=== PATIENT | male | born 1950 | race Caucasian/White ===

== ENCOUNTER 2024-10-12 09:41 | Outpatient (CLI) | payer OTHER, SELFPAY ==
--- OUTSIDE RECORDS SUMMARY | 2024-10-12 10:19 | XMS_ITS ---
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 Controlled. Continue beta-denis, amlodipine benazepril, aspirin Assessment & Plan (04/08/2023 4:55 PM SLOT HOST): Chronic. HTN controlled. Cont prescription Rx. Low sodium diet (DASH or Mediterranean), exercise, wt loss (if over weight) discussed Pure hypercholesterolemia 04/08/2023 Assessment & Plan (10/07/2023 7:19 PM CDT): Chronic. Tolerates rosuvastatin. LDL goal of less than 70. Borderline control on last check. Continue cholesterol medication. Work on diet and lifestyle Assessment & Plan (04/08/2023 4:56 PM SLOT HOST): Chronic. Tolerates rosuvastatin 40 mg daily. LDL just above goal. Discussed option to add Zetia or continue with current medication and work on diet and exercise. Patient is to continue rosuvastatin 40 mg daily and will continue to work on healthy diet, exercise and weight loss. We will plan to recheck cholesterol level in about 6 months to see if LDL is improving CAD (coronary artery disease) 04/08/2023 Assessment & Plan (10/07/2023 7:19 PM CDT): Chronic. Denies chest pain. Continue risk factor modification with high intensity cholesterol medication aspirin, blood pressure control Assessment & Plan (04/08/2023 4:56 PM SLOT HOST): Chronic. Denies chest pain. Continue risk factor modification with ASA and high-intensity statin Prostate cancer 04/08/2023 Cancer Staging:Clinical stage from 05/05/2024:Stage IIB(cT1c, cN0, cM0, PSA: 8.6, Grade Group: 2) - Signed by Errol Gr MD on 07/05/2024 Assessment & Plan (10/07/2023 7:20 PM CDT): Chronic. Has elevated PSA. He is getting routine monitoring per Urology. He has had prior prostate biopsies. They are trending his PSA may do repeat biopsies pending results. He had a PSA drawn today. He has a history of mild BPH symptoms which are controlled with the tamsulosin Assessment & Plan (04/08/2023 4:56 PM SLOT HOST): Recent diagnosis earlier this year. Sees urology. Currently they are planning Q six-month PSA monitoring before considering if positive initial treatment would be necessary Elevated PSA 04/02/2022 Current Treatment and Therapy Plans No current plan information found. Past Treatment and Therapy Plans No past plan information found. Radiation Treatments * Course [id number]/[id number] - 08/10/2024 Treatment Period Energy Fraction Dose Fractions Total Dose Plans Planned SBRT PROSTATE 08/01/2024 - 08/10/2024 725 5 / 3,625 Reference Points Delivered PROST [id number] 08/01/2024 - 08/10/2024 3,625
--- OUTSIDE RECORDS SUMMARY | 2024-10-12 10:19 | XMS_ITS | Clinical Summary ---
Author Organization [facility] Address [address] [address] Phone Care Team Providers Care Scheduler Name Role Phone Deborah Restrepo MD Unavailable Trish Ma MD Primary Care Provider Allergies Active Allergy Reactions Criticality Noted Date Comments Ciprofloxacin Hives,Itching,Other (See comments) Medium 04/02/2022 BP drops Medications tiZANidine (ZANAFLEX) 2 mg tabletIndications:Acute bilateral low back pain without sciatica Take 1 tablet (2 mg total) by mouth every 8 (eight) hours as needed for muscle spasms 270 tablet 1 10/21/19 24 Active tamsulosin (FLOMAX) 0.4 mg extended release capsule Take 1 capsule (0.4 mg total) by mouth daily 90 capsule 3 03/09/20 24 025 Active amLODIPine-benazepriL (LOTREL) 5-40 mg per capsuleIndications:Coron mindy artery disease involving salt river coronary artery of salt river heart without angina pectoris,Essential hypertension TAKE 1 CAPSULE BY MOUTH EVERY DAY AT NIGHT 90 capsule 1 03/21/20 24 Active aspirin 81 mg chewable tabletIndications:Ramesh ry artery disease involving salt river coronary artery of salt river heart without angina pectoris TAKE 1 TABLET BY MOUTH EVERY DAY 90 tablet 3 03/21/20 24 Active rosuvastatin (CRESTOR) 40 mg tabletIndications:Ramesh ry artery disease involving salt river coronary artery of salt river heart without angina pectoris,Pure hypercholesterolemia TAKE 1 TABLET BY MOUTH EVERYDAY AT BEDTIME 90 tablet 3 03/21/20 24 Active ezetimibe (ZETIA) 10 mg tabletIndications:Ramesh ry artery disease involving salt river coronary artery of salt river heart without angina pectoris,Pure hypercholesterolemia Take 1 tablet (10 mg total) by mouth daily 90 tablet 1 04/05/20 24 Active metoprolol XL (TOPROL-XL) 25 mg extended release tabletIndications:Ramesh ry artery disease involving salt river coronary artery of salt river heart without angina pectoris,Essential hypertension TAKE 0.5 TABLETS BY MOUTH NIGHTLY. 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 Controlled. Continue beta-denis, amlodipine benazepril, aspirin Assessment & Plan (04/08/2023 4:55 PM BIBLIOGRAPHIC SERVICES SPECIALIST): Chronic. HTN controlled. Cont prescription Rx. Low sodium diet (DASH or Mediterranean), exercise, wt loss (if over weight) discussed Pure hypercholesterolemia 04/08/2023 Assessment & Plan (10/07/2023 7:19 PM CDT): Chronic. Tolerates rosuvastatin. LDL goal of less than 70. Borderline control on last check. Continue cholesterol medication. Work on diet and lifestyle Assessment & Plan (04/08/2023 4:56 PM BIBLIOGRAPHIC SERVICES SPECIALIST): Chronic. Tolerates rosuvastatin 40 mg daily. LDL [...] control Assessment & Plan (04/08/2023 4:56 PM BIBLIOGRAPHIC SERVICES SPECIALIST): Chronic. Denies chest pain. Continue risk factor [...] tamsulosin Assessment & Plan (04/08/2023 4:56 PM BIBLIOGRAPHIC SERVICES SPECIALIST): Recent diagnosis earlier this year. Sees urology. Currently they are planning Q six-month PSA monitoring before considering if positive initial treatment would be necessary Elevated PSA 04/02/2022 Encounters Date Type Department Care Team Description 09/27/2024 9:45 AM CDT Lab [facility] Outpatient Lab at [address] [phone] 09/27/2024 9:38 AM CDT - 09/27/2024 11:59 PM CDT Hospital Encounter [address] [address] Prostate cancer (HCC) Discharge Disposition: Discharge to home or self care 09/27/2024 Telephone [facility] Cardiology [address] [place] [phone] Gail Jara MD 09/23/2024 Telephone [facility] Cardiology [address] [place] [phone] Gail Jara MD 09/23/2024 Results Follow-Up [facility] Cardiology [address] [place] [address] [place] [phone] Gail Jara MD Transthoracic Echo (TTE) Complete W Doppler/CF 09/20/2024 3:00 PM CDT Ancillary Procedure [facility] Cardiology [address] [place] [address] Coronary artery disease involving salt river coronary artery of salt river heart without angina pectoris; Pure hypercholesterolemia; Essential hypertension; Hx of CABG 08/22/2024 9:15 AM CDT Office Visit [facility] Cardiology [address] [place] [phone] Gail Jara MD Hx of CABG (Primary Dx); Atherosclerosis of salt river coronary artery without angina pectoris, unspecified whether salt river or transplanted heart; Coronary artery disease involving salt river coronary artery of salt river heart without angina pectoris; Pure hypercholesterolemia; Essential hypertension 08/10/2024 10:42 AM CDT - 08/10/2024 11:59 PM CDT Hospital Encounter [facility] Radiation Oncology [address] [place] [address] Isaac Johnson MD Discharge Disposition: Discharge to home or self care 08/10/2024 Completion of Therapy [facility] Radiation Oncology [address] [place] [address] Isaac Johnson MD 08/10/2024 Orders Only RAD ONC TREATMENTS Miscellaneous, Not In File 08/10/2024 Orders Only RAD ONC TREATMENTS Miscellaneous, Not In File 08/08/2024 11:42 AM CDT - 08/08/2024 11:59 PM CDT Hospital Encounter [facility] Radiation Oncology [address] [place] [address] Isaac Johnson MD Discharge Disposition: Discharge to home or self care 08/08/2024 Orders Only RAD ONC TREATMENTS Miscellaneous, Not In File 08/08/2024 Orders Only [facility] Radiation Oncology [address] [place] [id number] Isaac Johnson MD Prostate cancer (HCC) (Primary Dx) 08/05/2024 12:38 PM CDT - 08/05/2024 11:59 PM CDT Hospital Encounter [facility] Radiation Oncology [address] [facility] [place] [address] Isaac Johnson MD Discharge Disposition: Discharge to home or self care 08/05/2024 Orders Only RAD ONC TREATMENTS Miscellaneous, Not In File 08/03/2024 1:18 PM CDT - 08/03/2024 11:59 PM CDT Hospital Encounter [facility] Radiation Oncology [address] [place] [address] Isaac Johnson MD Discharge Disposition: Discharge to home or self care 08/03/2024 OTV [facility] Radiation Oncology [address] [place] [address] Isaac Johnson MD 08/03/2024 Orders Only RAD ONC TREATMENTS Miscellaneous, Not In File 08/01/2024 10:37 AM CDT - 08/01/2024 11:59 PM CDT Hospital Encounter [facility] Radiation Oncology [address] [place] [address] Isaac Johnson MD Discharge Disposition: Discharge to home or self care 08/01/2024 Orders Only RAD ONC TREATMENTS Miscellaneous, Not In File 07/28/2024 6:10 PM BIBLIOGRAPHIC SERVICES SPECIALIST - 07/28/2024 11:59 PM BIBLIOGRAPHIC SERVICES SPECIALIST Hospital Encounter [facility] Radiation Oncology [address] [place] [address] Isaac Johnson MD Discharge Disposition: Discharge to home or self care 07/21/2024 2:00 PM BIBLIOGRAPHIC SERVICES SPECIALIST - 07/21/2024 11:59 PM BIBLIOGRAPHIC SERVICES SPECIALIST Hospital Encounter [facility] Radiation Oncology [address] [place] [address] [place] [address] Isaac Johnson MD Discharge Disposition: Discharge to home or self care 07/21/2024 12:49 PM BIBLIOGRAPHIC SERVICES SPECIALIST - 07/21/2024 11:59 PM BIBLIOGRAPHIC SERVICES SPECIALIST Hospital Encounter [facility] Radiation Oncology [address] [facility] [place] [address] Isaac Johnson MD Discharge Disposition: Discharge to home or self care 07/18/2024 2:11 PM BIBLIOGRAPHIC SERVICES SPECIALIST - 07/18/2024 11:59 PM BIBLIOGRAPHIC SERVICES SPECIALIST Hospital Encounter [facility] Radiation Oncology [address] [place] [address] Isaac Johnson MD Prostate cancer (HCC) Discharge Disposition: Discharge to home or self care from Last 3 Months Immunizations Immunization Administration Dates Next Due COVID-19 mRNA (Zigabid) 0.3 m L (30 mcg) vaccine (12 years and up) 02/07/2023 Influenza, Quadrivalent, Hig h Dose, Preservative Free, Intrr 01/10/2023 Influenza, Trivalent, High D ose, Split, Preservative Free, Intramuscular 02/02/2024 Influenza, Unspecified 01/06/2022 Moderna SARS-CoV-2 Monovalen t Vaccination (12+ YRS) 10/07/2021,06/03/2021,12/31/2020,07/19,06/21/2020 Pfizer SARS-CoV-2 Monovalent Vaccination (12+ Yrs) PURPLE 08/12/2023 Pfizer Sars-Cov-2 Bivalent V accination (12+ YRS) 09/21/2022 Pneumococcal Conjugate Pcv20 06/03/2023 RSV Vaccine, Pref, Recombina nt, Subunit, Adjuvanted, PF, IM (Arexvy) 01/10/2023 Tdap 10/01/2022 Surgical History Surgery Date Site/Laterality Comments CORONARY ARTERY BYPASS GRAFT 05/25/1999 - 05/24/2000 2 vessel CARDIAC STENT PLACEMENT 05/25/2019 - 05/24/2020 X1 CERVICAL FUSION 05/25/2020 - 05/24/2021 C4-C5 DISCETOMY WITH FUSION APPENDECTOMY 05/25/1958 - 05/24/1959 PROSTATE BIOPSY 02/22/2023 - 03/24/2023 COLONOSCOPY Medical History Medical History Date Comments Hypertension CAD (coronary artery disease) 04/08/2023 High cholesterol C6 cervical fracture (HCC) PSA elevation Prostate cancer (HCC) 04/08/2023 Chickenpox Family History Medical History Relation Name Comments Esophageal cancer Brother Coronary artery disease Father Dementia Father Hyperlipidemia Father Prostate cancer Father Colon cancer Mother Anesthesia problems Neg Hx Relation Name Status Comments Brother Father Mother Social History Tobacco Use Types Packs/Day Years Used Date Smoking Tobacco: Never Passive Smoke Exposure: Past Smokeless Tobacco: Never Tobacco Cessation:Counseling Given: Not Answered Comments:Rare social cigar AUDIT-C Answer Date Recorded Q1: How often do you have a drink containing alc ohol? 2-3 times a week 05/05/2024 Q2: How many drinks containi ng alcohol do you have on a typical day when you are drinking? 3 or 4 05/05/2024 Q3: How often do you have si x or more drinks on one occasion? Never 05/05/2024 PHQ-2 Answer Date Recorded PHQ-2 Total Score (If total score is 3 or more points, staff should administer the PHQ-9) 0 04/08/2023 Personal Safety Answer Date Recorded Have you ever been in or are you currently in a harmful physical or emotional relationship or is someone making you feel afraid or unsafe? Denies 05/05/2024 Sex and Gender Information Value Date Recorded Sex Assigned at Not on file Legal Sex Male 8:55 AM CDT Gender Identity Not on file Sexual Orientation Not on file Obstetrics History Last Filed Vital Signs Vital Sign Reading Time Taken Comments Blood Pressure 112/58 08/22/2024 9:15 AM CDT Pulse 81 08/22/2024 9:15 AM CDT Temperature 36.3 C (97.3 F) 07/06/2024 12:27 PM BIBLIOGRAPHIC SERVICES SPECIALIST Respiratory Rate 16 07/18/2024 4:00 PM BIBLIOGRAPHIC SERVICES SPECIALIST Oxygen Saturation 94% 08/22/2024 9:15 AM CDT Inhaled Oxygen Concentration - - Weight 91.9 kg (202 lb 9.6 oz) 08/22/2024 9:15 A M CDT Height 172.7 cm (5' 8 ) 08/22/2024 9:15 AM CDT Body Mass Index 30.81 08/22/2024 9:15 AM CDT Plan of Treatment Health Maintenance Due Date Last Done Comments Zoster Vaccine (1 of 2) 1968 Covid-19 Vaccine ( season) 2024 08/12/2023, 08/12/2023, 02/07/2023, Additional history exists Depression Screening 04/08/2024 04/08/2023, 04/02/20 Well Visit 65+ 04/08/2024 04/08/2023, 12/23/2021 Fall Risk Assessment 07/06/2025 07/06/2024, 12/17/2023, 04/08/2023, Additional history exists Prostate Cancer Screening-PSA 09/27/2026, 02/16/2024, 10/07/2023, Additional history exists Colon Cancer Screening-Colonoscopy 12/16/2028 12/17/2023, 06/25/2018 DTaP/Tdap/Td Vaccine (2 - Td or Tdap) 10/01/2032 10/01/2022 Pneumococcal vaccine 65+ Completed 06/03/2023 Influenza Vaccine Completed 02/02/2024, , 01/06/2022 Hepatitis C Screening Completed 02/16/2024 Hepatitis B Screening Discontinued Medical Devices Implanted Type Area Curriculum Supervisor Device Identifier Shelf Expiration Date Model / Serial / Lot Stent Implanted:Qty: 1 Stent Heart Sternal Wires Sternum Procedures Procedure Name Priority Date/Time Associated Diagnosis Comments PSA DIAGNOSTIC Routine 09/27/2024 9:38 AM CDT Prostate cancer (HCC) TRANSTHORACIC ECHO (TTE) COMPLETE W DOPPLER/CF Routine 09/20/2024 3:20 PM CDT Coronary artery disease involving salt river coronary artery of salt river heart without angina pectoris Pure hypercholesterolemia Essential hypertension Hx of CABG ECG 12-LEAD Routine 08/22/2024 3:43 PM CDT Coronary artery disease involving salt river coronary artery of salt river heart without angina pectoris POCT LIPID PANEL Routine 08/22/2024 9:57 AM CDT Coronary artery disease involving salt river coronary artery of salt river heart without angina pectoris Pure hypercholesterolemia RAD ONC ARIA COURSE SUMMARY 08/10/2024 6:25 PM CDT RAD ONC ARIA SESSION SUMMARY 08/10/2024 11:20 AM CDT RAD ONC ARIA SESSION SUMMARY 08/08/2024 11:57 AM CDT RAD ONC ARIA SESSION SUMMARY 08/05/2024 1:17 PM CDT RAD ONC ARIA SESSION SUMMARY 08/03/2024 1:52 PM CDT RAD ONC ARIA SESSION SUMMARY 08/01/2024 11:11 AM CDT HEPATITIS C ANTIBODY Routine 02/16/2024 7:58 AM CDT Encounter for hepatitis C screening test for low risk patient Laboratory examination ordered as part of a complete physical examination COLONOSCOPY 12/17/2023 10:02 AM CDT from Last 3 Months or Most Recently Relevant to Health Maintenance Results * PSA diagnostic (09/27/2024 9:38 AM CDT) PSA-Total 6.14 <=6.20 ng/mL Comment: Interpretive Data AGE SEX REFERENCE INTERVAL 0 minutes-150 years Female None 0 minutes-49 years Male None 50-59 years Male 0-3.90 60-69 years Male 0-5.40 70-79 years Male 0-6.20 80-150 years Male 0-6.20 The [employer] PSA Total assay procedure was used. Results from different manufacturers or methods may not be comparable. Serial testing should be performed using the same method. Current interpretive data last revised 21. Blood 09/27/2024 9:38 AM CDT 09/27/2024 5:25 PM CDT us Isaac Johnson MD LAB BLOOD ORDERABLES Final Result [address] [address] [address] Department [place] [address] * TRANSTHORACIC ECHO (TTE) COMPLETE W DOPPLER/CF W CONTRAST (09/20/2024 3:20 PM CDT) LV EF 40 % CONS SCIMAGE Anatomical Region Laterality Modality Ultrasound 09/20/2024 2:58 PM CDT Narrative 09/20/2024 4:39 PM CDT [facility] Cardiology [address] [facility] [address], [place] [address] [address] [facility] [address], [place] [address] P:[phone] P:[phone] Echocardiographic Report Patient Name: NICOLA SAUCEDA R : 1950 Study Date: 09/20/2024 2:58:57 PM Gender: M Tech: Location: [place] Ref Provider: GAIL JARA Height(Cm): 173 BSA: 2.1 Weight(Kg): 91.6 Heart Rate: 79 BP: 112 / 58 Quality: Definity contrast agent used to enhance endocardial border definition Order Provider: GAIL JARA PROCEDURES: Echocardiographic Report: Transthoracic echocardiogram with complete 2D, M-Mode, color Doppler examination and Definity contrast. INDICATIONS: CAD, Hx of CABG, HTN and E78.00 Pure hypercholesterolemia, unspecified. MEASUREMENTS: 2D/MM Value Range Doppler Value Range EF Mod BP 45 % [ 52 - 72 ] DAVID Vmax 2.06 cm2 [ 2.00 - 4.00 ] EF Teich MM 56 % [ 52 - 72 ] AV Mean PG 6 mmHg Estimated EF 40 % AV Peak Silvio 1.68 m/s [ 1.00 - 1.70 ] LVIDd 2D 4.72 cm [ 4.20 - 5.80 ] AV Peak PG 11 mmHg LVIDd MM 5.28 cm [ 4.20 - 5.80 ] AV VTI 37.41 cm LVIDs 2D 3.44 cm [ 2.50 - 4.00 ] LVOT Diam 2.02 cm [ 1.70 - 2.10 ] LVIDs MM 3.72 cm [ 2.50 - 4.00 ] LVOT Peak Silvio 1.09 m/s [ 0.70 - 1.10 ] LVPWd 2D 1.12 cm [ 0.60 - 1.00 ] LVOT VTI 24.15 cm LVPWd MM 0.89 cm [ 0.60 - 1.00 ] MV E Peak Silvio 0.81 m/s [ 0.60 - 1.30 ] IVSd 2D 0.97 cm [ 0.60 - 1.00 ] MV A Peak Silvio 1.18 m/s [ 1.00 - 1.20 ] IVSd MM 1.01 cm [ 0.60 - 1.00 ] MV Decel Time 173 msec [ 104 - 258 ] LA Dimension MM 4.18 cm [ 3.00 - 4.00 ] PV Peak Silvio 1.52 m/s [ 0.40 - 0.80 ] AoR Diam MM 3.29 cm [ 3.10 - 3.70 ] TR Peak Silvio 2.82 m/s [ 1.00 - 2.80 ] LA Volume Index 32 cc/m2 [ 16 - 34 ] TR Peak PG 32 mmHg ACS MM 2.02 cm [ 1.50 - 2.60 ] RVSP 40.00 mmHg [ 10.00 - 36.00 ] Lateral E` 0.12 m/s [ 0.10 - 0.15 ] E` 0.08 m/s E/E` 7 2D/MM Value Range Doppler Value Range - FINDINGS: Interpretation Site: Exam was interpreted at [facility]. Left Ventricle: Normal left ventricular size. Definity contrast agent used to visually enhance endocardial wall motion and contractility. Lot Number: [id number]. Mild concentric left ventricular hypertrophy. Mild global left ventricular systolic dysfunction. Paradoxical septal motion consistent with post pericardectomy status. Impaired diastolic relaxation Grade I. Ejection fraction is measured at 45 %. Ejection Fraction is visually estimated to be 40 %. Right Ventricle: Normal right ventricular size. Left Atrium: There is mild enlargement of left atrium. Right Atrium: The right atrium is normal in size. Atrial Septum: Normal atrial septum. Mitral Valve: Normal appearance of the mitral valve. Trivial regurgitation of the mitral valve. Aortic Valve: Aortic cusps appear mildly sclerotic. Tricuspid Valve: Normal appearance of the tricuspid valve. Estimated peak RVSP is 40 mmHg. Mild tricuspid regurgitation. Pulmonic Valve: Pulmonic valve not well visualized. Pericardium: Normal pericardium with no significant pericardial effusion. Aorta: Normal aortic root. IVC: Normal size and normal respiratory collapse consistent with normal right atrial pressure (<5 mmHg). Pulmonary Artery: Pulmonary artery not well visualized. CONCLUSIONS: Normal left ventricular size. Definity contrast agent used to visually enhance endocardial wall motion and contractility. Lot Number: [id number]. Mild concentric left ventricular hypertrophy. Mild global left ventricular systolic dysfunction. Paradoxical septal motion consistent with post pericardectomy status. Impaired diastolic relaxation Grade I. Ejection fraction is measured at 45 %. Ejection Fraction is visually estimated to be 40 %. There is mild enlargement of left atrium. Normal appearance of the mitral valve. Trivial regurgitation of the mitral valve. Aortic cusps appear mildly sclerotic. Electronically Signed By: Jules John MD, [facility] 09/20/2024 4:39:29 PM CDT Procedure Note Jules John MD - 09/20/2024 [facility] Cardiology [address] [facility] [address] [id number] [address] [facility] [address], [place], [place] [address] P:[phone] P:[phone] Echocardiographic Report Patient Name: NICOLA SAUCEDA R : 1950 Study Date: 09/20/2024 2:58:57 PM Gender: M Tech: Location: [facility] Provider: GAIL JARA Height(Cm): 173 BSA: 2.1 Weight(Kg): 91.6 Heart Rate: 79 BP: 112 / 58 Quality: Definity contrast agent used to enhance endocardial borderdefinition Order Provider: GAIL JARA PROCEDURES: Echocardiographic Report: Transthoracic echocardiogram with complete 2D, M-Mode, color Dopplerexamination and Definity contrast. INDICATIONS: CAD, Hx of CABG, HTN and E78.00 Pure hypercholesterolemia, unspecified. MEASUREMENTS: 2D/MM Value Range Doppler ValueRange EF Mod BP 45 % [ 52 - 72 ] DAVID Vmax 2.06cm2 [ 2.00 - 4.00 ] EF Teich MM 56 % [ 52 - 72 ] AV Mean PG 6mmHg Estimated EF 40 % AV Peak Silvio 1.68m/s [ 1.00 - 1.70 ] LVIDd 2D 4.72 cm [ 4.20 - 5.80 ] AV Peak PG 11mmHg LVIDd MM 5.28 cm [ 4.20 - 5.80 ] AV VTI 37.41cm LVIDs 2D 3.44 cm [ 2.50 - 4.00 ] LVOT Diam 2.02 cm[ 1.70 - 2.10 ] LVIDs MM 3.72 cm [ 2.50 - 4.00 ] LVOT Peak Silvio 1.09m/s [ 0.70 - 1.10 ] LVPWd 2D 1.12 cm [ 0.60 - 1.00 ] LVOT VTI 24.15cm LVPWd MM 0.89 cm [ 0.60 - 1.00 ] MV E Peak Silvio 0.81m/s [ 0.60 - 1.30 ] IVSd 2D 0.97 cm [ 0.60 - 1.00 ] MV A Peak Silvio 1.18m/s [ 1.00 - 1.20 ] IVSd MM 1.01 cm [ 0.60 - 1.00 ] MV Decel Time 173msec [ 104 - 258 ] LA Dimension MM 4.18 cm [ 3.00 - 4.00 ] PV Peak Silvio 1.52m/s [ 0.40 - 0.80 ] AoR Diam MM 3.29 cm [ 3.10 - 3.70 ] TR Peak Silvio 2.82m/s [ 1.00 - 2.80 ] LA Volume Index 32 cc/m2 [ 16 - 34 ] TR Peak PG 32mmHg ACS MM 2.02 cm [ 1.50 - 2.60 ] RVSP 40.00mmHg [ 10.00 - 36.00 ] Lateral E` 0.12 m/s [ 0.10 - 0.15 ] E` 0.08 m/s E/E` 7 2D/MM Value Range Doppler ValueRange - FINDINGS: Interpretation Site: Exam was interpreted at [facility]. Left Ventricle: Normal left ventricular size. Definity contrast agent used to visuallyenhance endocardial wall motion and contractility. Lot Number: [id number]. Mildconcentric left ventricular hypertrophy. Mild global left ventricular systolicdysfunction. Paradoxical septal motion consistent with post pericardectomy status. Impaireddiastolic relaxation Grade I. Ejection fraction is measured at 45 %. Ejection Fraction isvisually estimated to be 40 %. Right Ventricle: Normal right ventricular size. Left Atrium: There is mild enlargement of left atrium. Right Atrium: The right atrium is normal in size. Atrial Septum: Normal atrial septum. Mitral Valve: Normal appearance of the mitral valve. Trivial regurgitation of the mitralvalve. Aortic Valve: Aortic cusps appear mildly sclerotic. Tricuspid Valve: Normal appearance of the tricuspid valve. Estimated peak RVSP is 40 mmHg.Mild tricuspid regurgitation. Pulmonic Valve: Pulmonic valve not well visualized. Pericardium: Normal pericardium with no significant pericardial effusion. Aorta: Normal aortic root. IVC: Normal size and normal respiratory collapse consistent with normal rightatrial pressure (<5 mmHg). Pulmonary Artery: Pulmonary artery not well visualized. CONCLUSIONS: Normal left ventricular size. Definity contrast agent used to visuallyenhance endocardial wall motion and contractility. Lot Number: [id number]. Mildconcentric left ventricular hypertrophy. Mild global left ventricular systolicdysfunction. Paradoxical septal motion consistent with post pericardectomy status. Impaireddiastolic relaxation Grade I. Ejection fraction is measured at 45 %. Ejection Fraction isvisually estimated to be 40 %. There is mild enlargement of left atrium. Normal appearance of the mitral valve. Trivial regurgitation of the mitralvalve. Aortic cusps appear mildly sclerotic. Electronically Signed By: Jules John MD, FACC 09/20/2024 4:39:29 PM CDT us Gail Villalobos Reyes Jara MD CV ECHO PROCEDURES F inal Result * ECG 12 lead (08/22/2024 3:43 PM CDT) us Gail Jara MD ECG ORDERABLES Joanne l Result * POCT lipid panel (08/22/2024 9:57 AM CDT) Cholesterol, POC 144 mg/dL Comment:GLU = 105 HDL, POC 67 mg/dL Triglycerides, POC 104 mg/dL LDL Cholesterol POC 57 mg/dL Chol/HDL Ratio, POC 0.8 Non-HDL Cholesterol, POC 77 mg/dL Cholesterol Total, POC 144 mg/dL Capillary blood 08/22/2024 9 :57 AM CDT us Gail Jara MD POINT OF CARE TEST O RDERABLES Final Result * RAD ONC ARIA COURSE SUMMARY (08/10/2024 6:25 PM CDT) Course Name [email or web address]_ 2024 ARIA Course Plan Date 07/21/2024 3:22 PM ARIA Elapsed Days 9 ARIA Treatment Start Date 08/01/2024 ARIA Treatment Site PROST [id number] ARIA Dose Given To Date (cGy) 3,625 ARIA Session Dosage Given (cGy) 0 ARIA Plan ID SBRT PROSTATE ARIA Fractions Treated 5 ARIA Prescribed Dose Per Fraction (cGy) 725 ARIA Prescribed Total Dose (cGy) 3,625 ARIA 08/10/2024 6:25 PM CDT us Not In File Miscellaneous RADIATION ONCOLOGY ORD ERABLES Final Result SARAH * RAD ONC ARIA SESSION SUMMARY (08/10/2024 11:20 AM CDT) Course Name C1_Prostate_ 2024 ARIA Course Plan Date 07/21/2024 3:22 PM ARIA Elapsed Days 9 ARIA Treatment Start Date 08/01/2024 ARIA Treatment Site PROST [id number] ARIA Dose Given To Date (cGy) 3,625 ARIA Session Dosage Given (cGy) 725 ARIA Plan ID SBRT PROSTATE ARIA Fractions Treated 5 ARIA Prescribed Dose Per Fraction (cGy) 725 ARIA Prescribed Total Dose (cGy) 3,625 ARIA 08/10/2024 11:2 0 AM CDT us Not In File Miscellaneous RADIATION ONCOLOGY ORD ERABLES Final Result ARIA * RAD ONC ARIA SESSION SUMMARY (08/08/2024 11:57 AM CDT) Course Name C1_Prostate_ 2024 ARIA Course Plan Date 07/21/2024 3:22 PM ARIA Elapsed Days 7 ARIA Treatment Start Date 08/01/2024 ARIA Treatment Site PROST [id number] ARIA Dose Given To Date (cGy) 2,900 ARIA Session Dosage Given (cGy) 725 ARIA Plan ID SBRT PROSTATE ARIA Fractions Treated 4 ARIA Prescribed Dose Per Fraction (cGy) 725 ARIA Prescribed Total Dose (cGy) 3,625 ARIA 08/08/2024 11:5 7 AM CDT us Not In File Miscellaneous RADIATION ONCOLOGY ORD ERABLES Final Result ARIA * RAD ONC ARIA SESSION SUMMARY (08/05/2024 1:17 PM CDT) Course Name C1_Prostate_ 2024 ARIA Course Plan Date 07/21/2024 3:22 PM ARIA Elapsed Days 4 ARIA Treatment Start Date 08/01/2024 ARIA Treatment Site PROST [id number] ARIA Dose Given To Date (cGy) 2,175 ARIA Session Dosage Given (cGy) 725 ARIA Plan ID SBRT PROSTATE ARIA Fractions Treated 3 ARIA Prescribed Dose Per Fraction (cGy) 725 ARIA Prescribed Total Dose (cGy) 3,625 ARIA 08/05/2024 1:17 PM CDT us Not In File Miscellaneous RADIATION ONCOLOGY ORD ERABLES Final Result Performing Organization Address City/[facility]/ZIP Co de Phone Number SARAH * RAD ONC ARIA SESSION SUMMARY (08/03/2024 1:52 PM CDT) Course Name C1_Prostate_ 2024 ARIA Course Plan Date 07/21/2024 3:22 PM ARIA Elapsed Days 2 ARIA Treatment Start Date 08/01/2024 ARIA Treatment Site PROST [id number] ARIA Dose Given To Date (cGy) 1,450 ARIA Session Dosage Given (cGy) 725 ARIA Plan ID SBRT PROSTATE ARIA Fractions Treated 2 ARIA Prescribed Dose Per Fraction (cGy) 725 ARIA Prescribed Total Dose (cGy) 3,625 ARIA 08/03/2024 1:52 PM CDT us Not In File Miscellaneous RADIATION ONCOLOGY ORD ERABLES Final Result Performing Organization Address [facility] de Phone Number SARAH * RAD ONC ARIA SESSION SUMMARY (08/01/2024 11:11 AM CDT) Course Name C1_Prostate_ 2024 ARIA Course Plan Date 07/21/2024 3:22 PM ARIA Elapsed Days 0 ARIA Treatment Start Date 08/01/2024 ARIA Treatment Site PROST [id number] ARIA Dose Given To Date (cGy) 725 ARIA Session Dosage Given (cGy) 725 ARIA Plan ID SBRT PROSTATE ARIA Fractions Treated 1 ARIA Prescribed Dose Per Fraction (cGy) 725 ARIA Prescribed Total Dose (cGy) 3,625 ARIA 08/01/2024 11:1 1 AM CDT us Not In File Miscellaneous RADIATION ONCOLOGY ORD ERABLES Final Result Performing Organization Address City/[facility]/ZIP Co de Phone Number SARAH * Hepatitis C antibody Blood (02/16/2024 7:58 AM CDT) Hep C Ab Nonreactive Nonreactive Comment: Interpretive Data Nonreactive: Antibodies to HCV not detected. Does NOT exclude the possibility of recent exposure to HCV. Equivocal: Equivocal for HCV antibodies. Supplemental molecular testing will be automatically performed to determine infection status in accordance with current CDC screening recommendations. Reactive: Positive for HCV antibodies. This may represent current or past HCV infection. Supplemental molecular testing will be automatically performed to determine current infection status in accordance with current CDC screening recommendations. Interpretive data was last revised on 2019. Blood 02/16/2024 7:58 AM CDT 02/17/2024 11:30 AM CDT Shaye Siu MD LAB MICROBIOLOGY - GEN ERAL ORDERABLES Final Result [facility] [address] [facility] Department of Laboratories [place], [place] [id number] * Colonoscopy (12/17/2023 10:02 AM CDT) Anatomical Region Laterality Modality Other Narrative Procedure Note Antionette Villanueva MD - 12/17/2023 10:02 AM CDT GI ENDOSCOPY [facility] Patient Name: Nicola Sauceda Procedure Date: 12/17/2023 10:02 AM Date of : 1950 Admit Type: Outpatient Age: 73 Gender: Male Attending MD: Antionette Villanueva M.D. Room: [facility] ENDOSCOPY ROOM 4 Note Status: Finalized Procedure: Colonoscopy Indications: High risk colon cancer surveillance: Personalhistory of colonic polyps Referring MD: Sahye Siu M.D. Providers: Antionette Villanueva M.D. Medicines: Monitored Anesthesia Care Complications: No immediate complications. Estimated Blood Loss: Estimated blood loss: none. Procedure: Pre-Anesthesia Assessment: - Immediately prior to administration ofmedications, the patient was re-assessed for adequacy to receive sedatives. - The risks and benefits of the procedure and the sedation options and risks were discussed with the patient. All questions were answered and informed consent was obtained. The benefits, risks and alternatives of theprocedure and sedation were discussed and informed consentwas obtained. All questions were answered. Please referto the signed informed consent document in the medical record. The scope was passed under direct vision.The [id number] endoscope was introduced through the anus and advanced to the cecum, identified by appendiceal orifice and ileocecal valve. The colonoscopy was performed without difficulty. The patient tolerated the procedure well. The qualityof the bowel preparation was adequate. The bowel preparation used was GoLYTELY. Findings: The perianal and digital rectal examinations were normal. A 4 mm polyp was found in the ascending colon. The polyp was sessile. The polyp was removed with a jumbo cold forceps. Resection andretrieval were complete. A 3 mm polyp was found in the ascending colon. The polyp was sessile. The polyp was removed with a jumbo cold forceps. Resection andretrieval were complete. A few small-mouthed diverticula were found in the sigmoid colon. Internal hemorrhoids were found during retroflexion. The hemorrhoids were small. Impression: - Two polyps removed and retrieved - Sigmoid dierticulosis coli - Intrnal hemorrhoids Recommendation: - Await pathology results. Electronically Signed by Antionette Villanueva M.D. Antionette Villanueva M.D. 12/17/2023 10:22:53 AM . Number of Addenda: 0 Note Initiated On: 12/17/2023 10:02 AM us Antionette Villanueva MD ENDOSCOPY PROCEDURES F inal Result from Last 3 Months or Most Recently Relevant to Health Maintenance Insurance [facility] Advance Directives For more information, please contact: [phone] * Full Code (Latest Code Status on File) Date Activated Date Inactivated Comments 12/17/2023 9:32 AM 12/17/2023 3:21 PM Care Teams Scheduler Relationship Specialty Start Date End Date Trish Ma MD [address] [facility] [address] [place] [address] PCP - General Family Practice 06/30/24 Deborah Restrepo MD Consulting Physician Urology 04/08/23
--- OUTSIDE RECORDS SUMMARY | 2024-10-12 10:19 | XMS_ITS | Encounter Summary ---
Author Organization [facility] Healthcare Address [address] [place] [address] Care Team Providers Care Office Specialist Name Role Phone Deborah Restrepo MD Unavailable Trish Ma MD Primary Care Provider Encounter Details Date Type Department Care Team (Latest Contact Info) Description 09/23/2024 Results Follow-Up [facility] Cardiology [address] [place] [phone] iEleen Jara MD [address] [place] [id number] Transthoracic Echo (TTE) Complete W Doppler/CF Social History Tobacco Use Types Packs/Day Years Used Date Smoking Tobacco: Never Passive Smoke Exposure: Past Smokeless Tobacco: Never Comments:Rare social cigar AUDIT-C Answer Date Recorded [...] on file Sexual Orientation Not on file documented as of this encounter Plan of Treatment Not on file documented as of this encounter Visit Diagnoses Not on filedocumented in this encounter Care Teams Office Specialist Relationship Specialty Start Date End Date Trish Ma MD [address] [facility] [address] [place] [address] PCP - General Family Practice 06/30/24 Deborah Restrepo MD Consulting Physician Urology 04/08/23 documented as of this encounter
--- OUTSIDE RECORDS SUMMARY | 2024-10-12 10:19 | XMS_ITS | Referral Summary ---
Author Organization [facility] Address [address] [facility] [address] [place] [address] Phone Care Team Providers Care Rn Embedded Name Role Phone Deborah Restrepo MD Unavailable Trish Ma MD Primary Care Provider Encounters Date Type Department Care Team Description 09/27/2024 9:38 AM CDT - 09/27/2024 11:59 PM CDT Hospital Encounter [facility] [address] [place] [address] Prostate cancer (HCC) Discharge Disposition: Discharge to home or self care 09/27/2024 Telephone [facility] Cardiology [address] [place] [address] [place] [phone] Gail Jara MD 09/27/2024 9:45 AM CDT Lab [facility] Outpatient Lab at [address] [phone] 09/23/2024 Telephone [facility] Cardiology [address] [place] [address] [address] [place] [phone] Gail Jara MD 09/23/2024 Results Follow-Up [facility] Cardiology [address] [facility] [address] [place] [phone] Gail Jara MD Transthoracic Echo (TTE) Complete W Doppler/CF 09/20/2024 3:00 PM CDT Ancillary Procedure [facility] Cardiology [address] [place] [address] Coronary artery disease involving [place] coronary artery of [place] heart without angina pectoris; Pure hypercholesterolemia; Essential hypertension; Hx of CABG 08/22/2024 9:15 AM CDT Office Visit [facility] Cardiology [address] [facility] [address] [place] [address] Gail Jara MD Hx of CABG (Primary Dx); Atherosclerosis of [place] coronary artery without angina pectoris, unspecified whether [place] or transplanted heart; Coronary artery disease involving [place] coronary artery of [place] heart without angina pectoris; Pure hypercholesterolemia; Essential hypertension 08/10/2024 Completion of Therapy [facility] Radiation Oncology [address] [place] [address] Isaac Johnson MD 08/10/2024 Orders Only RAD ONC TREATMENTS Miscellaneous, Not In File 08/10/2024 Orders Only RAD ONC TREATMENTS Miscellaneous, Not In File 08/10/2024 10:42 AM CDT - 08/10/2024 11:59 PM CDT Hospital Encounter [facility] Radiation Oncology [address] [place] [address] Isaac Johnson MD Discharge Disposition: Discharge to home or self care 08/08/2024 Orders Only RAD ONC TREATMENTS Miscellaneous, Not In File 08/08/2024 Orders Only [facility] Radiation Oncology [address] [place] [address] Isaac Johnson MD Prostate cancer (HCC) (Primary Dx) 08/08/2024 11:42 AM CDT - 08/08/2024 11:59 PM CDT Hospital Encounter [facility] Radiation Oncology [address] [place] [address] Isaac Johnson MD Discharge Disposition: Discharge to home or self care 08/05/2024 Orders Only RAD ONC TREATMENTS Miscellaneous, Not In File 08/05/2024 12:38 PM CDT - 08/05/2024 11:59 PM CDT Hospital Encounter [facility] Radiation Oncology [address] [facility] [place] [address] Isaac Johnson MD Discharge Disposition: Discharge to home or self care 08/03/2024 OTV [facility] Radiation Oncology [address] [facility] [place] [address] Isaac Johnson MD 08/03/2024 Orders Only RAD ONC TREATMENTS Miscellaneous, Not In File 08/03/2024 1:18 PM CDT - 08/03/2024 11:59 PM CDT Hospital Encounter [facility] Radiation Oncology [address] [place] [address] Isaac Johnson MD Discharge Disposition: Discharge to home or self care 08/01/2024 Orders Only RAD ONC TREATMENTS Miscellaneous, Not In File 08/01/2024 10:37 AM CDT - 08/01/2024 11:59 PM CDT Hospital Encounter [facility] Radiation Oncology [address] [facility] [place] [address] Isaac Johnson MD Discharge Disposition: Discharge to home or self care 07/28/2024 6:10 PM MOLDING SUPERVISOR - 07/28/2024 11:59 PM MOLDING SUPERVISOR Hospital Encounter [facility] Radiation Oncology [address] [facility] [place] [address] Isaac Johnson MD Discharge Disposition: Discharge to home or self care 07/21/2024 2:00 PM MOLDING SUPERVISOR - 07/21/2024 11:59 PM MOLDING SUPERVISOR Hospital Encounter [facility] Radiation Oncology [address] [place] [address] Isaac Johnson MD Discharge Disposition: Discharge to home or self care 07/21/2024 12:49 PM MOLDING SUPERVISOR - 07/21/2024 11:59 PM MOLDING SUPERVISOR Hospital Encounter [facility] Radiation Oncology [address] [facility] [place] [address] Isaac Johnson MD Discharge Disposition: Discharge to home or self care 07/18/2024 2:11 PM MOLDING SUPERVISOR - 07/18/2024 11:59 PM MOLDING SUPERVISOR Hospital Encounter [facility] Radiation Oncology [address] [place] [address] Isaac Johnson MD Prostate cancer (HCC) Discharge Disposition: Discharge to home or self care from Last 3 Months Allergies Active Allergy Reactions Criticality Noted Date [...] mg per capsuleIndications:Coron mindy artery disease involving [place] coronary artery of [place] heart without angina pectoris,Essential hypertension TAKE 1 CAPSULE BY MOUTH EVERY DAY AT NIGHT 90 capsule 1 03/21/20 24 Active aspirin 81 mg chewable tabletIndications:Ramesh ry artery disease involving [place] coronary artery of [place] heart without angina pectoris TAKE 1 TABLET BY MOUTH EVERY DAY 90 tablet 3 03/21/20 24 Active rosuvastatin (CRESTOR) 40 mg tabletIndications:Ramesh ry artery disease involving [place] coronary artery of [place] heart without angina pectoris,Pure hypercholesterolemia TAKE 1 TABLET BY MOUTH EVERYDAY AT BEDTIME 90 tablet 3 03/21/20 24 Active ezetimibe (ZETIA) 10 mg tabletIndications:Ramesh ry artery disease involving [place] coronary artery of [place] heart without angina pectoris,Pure hypercholesterolemia Take 1 tablet (10 mg total) by mouth daily 90 tablet 1 04/05/20 24 Active metoprolol XL (TOPROL-XL) 25 mg extended release tabletIndications:Ramesh ry artery disease involving [place] coronary artery of [place] heart without angina pectoris,Essential hypertension TAKE 0.5 TABLETS BY MOUTH NIGHTLY. 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 Controlled. Continue beta-denis, amlodipine benazepril, aspirin Assessment & Plan (04/08/2023 4:55 PM MOLDING SUPERVISOR): Chronic. HTN controlled. Cont prescription Rx. Low sodium diet (DASH or Mediterranean), exercise, wt loss (if over weight) discussed Pure hypercholesterolemia 04/08/2023 Assessment & Plan (10/07/2023 7:19 PM CDT): Chronic. Tolerates rosuvastatin. LDL goal of less than 70. Borderline control on last check. Continue cholesterol medication. Work on diet and lifestyle Assessment & Plan (04/08/2023 4:56 PM MOLDING SUPERVISOR): Chronic. Tolerates rosuvastatin 40 mg daily. LDL [...] control Assessment & Plan (04/08/2023 4:56 PM MOLDING SUPERVISOR): Chronic. Denies chest pain. Continue risk factor [...] tamsulosin Assessment & Plan (04/08/2023 4:56 PM MOLDING SUPERVISOR): Recent diagnosis earlier this year. Sees urology. Currently they are planning Q six-month PSA monitoring before considering if positive initial treatment would be necessary Elevated PSA 04/02/2022 Immunizations Immunization Administration Dates Next Due COVID-19 mRNA ([employer]) 0.3 m L (30 mcg) vaccine (12 [...] Adjuvanted, PF, IM (Arexvy) 01/10/2023 Tdap 10/01/2022 Social History Tobacco Use Types Packs/Day Years [...] on file Sexual Orientation Not on file Last Filed Vital Signs Vital Sign Reading Time Taken Comments Blood Pressure 112/58 08/22/2024 9:15 AM CDT Pulse 81 08/22/2024 9:15 AM CDT Temperature 36.3 C (97.3 F) 07/06/2024 12:27 PM MOLDING SUPERVISOR Respiratory Rate 16 07/18/2024 4:00 PM MOLDING SUPERVISOR Oxygen Saturation 94% 08/22/2024 9:15 AM CDT Inhaled Oxygen Concentration - - Weight 91.9 kg (202 lb 9.6 oz) 08/22/2024 9:15 A M CDT Height 172.7 cm (5' 8 ) 08/22/2024 9:15 AM CDT Body Mass Index 30.81 08/22/2024 9:15 AM CDT Plan of Treatment Not on file Medical Devices Implanted Type Area Sales Account Manager Device Identifier Shelf Expiration Date Model / Serial / Lot Stent Implanted:Qty: 1 Stent Heart Sternal Wires Sternum Procedures Procedure Name Priority Date/Time Associated Diagnosis Comments PSA DIAGNOSTIC Routine 09/27/2024 9:38 AM CDT Prostate cancer (HCC) TRANSTHORACIC ECHO (TTE) COMPLETE W DOPPLER/CF Routine 09/20/2024 3:20 PM CDT Coronary artery disease involving [place] coronary artery of [place] heart without angina pectoris Pure hypercholesterolemia Essential hypertension Hx of CABG ECG 12-LEAD Routine 08/22/2024 3:43 PM CDT Coronary artery disease involving [place] coronary artery of [place] heart without angina pectoris POCT LIPID PANEL Routine 08/22/2024 9:57 AM CDT Coronary artery disease involving [place] coronary artery of [place] heart without angina pectoris Pure hypercholesterolemia RAD [...] 9:38 AM CDT 09/27/2024 5:25 PM CDT Isaac Johnson MD LAB BLOOD ORDERABLES Final Result [facility] [address] [address] [place] [address] * TRANSTHORACIC ECHO (TTE) COMPLETE W DOPPLER/CF W CONTRAST (09/20/2024 3:20 PM CDT) LV EF 40 % CONS SCIMAGE Anatomical Region Laterality Modality Ultrasound 09/20/2024 2:58 PM CDT Narrative 09/20/2024 4:39 PM CDT [facility] Cardiology [address] [address] [address] [facility] [address], [place] [address] P:[phone] P:[phone] Echocardiographic Report Patient Name: NCIOLA SAUCEDA R : 1950 Study Date: 09/20/2024 2:58:57 PM Gender: M Tech: Location: [place] Ref Provider: GAIL JARA Height(Cm): 173 BSA: [...] FINDINGS: Interpretation Site: Exam was interpreted at [facility]. Left Ventricle: Normal left ventricular size. Definity [...] sclerotic. Electronically Signed By: Jules John MD, [facility] 09/20/2024 4:39:29 PM CDT Procedure Note Jules John MD - 09/20/2024 [facility] Cardiology [address] [facility] [address] [address] [address] [facility] [address], [place] [address] P:[phone] P:[phone] Echocardiographic Report Patient Name: NICOLA SAUCEDA R : 1950 Study Date: 09/20/2024 2:58:57 PM Gender: M Tech: Location: [place] Ref Provider: GIAL JARA Height(Cm): 173 BSA: 2.1 Weight(Kg): 91.6 [...] FINDINGS: Interpretation Site: Exam was interpreted at [facility]. Left Ventricle: Normal left ventricular size. Definity [...] sclerotic. Electronically Signed By: Jules John MD, [facility] 09/20/2024 4:39:29 PM CDT Gail Jara MD CV ECHO PROCEDURES F inal Result * ECG 12 lead (08/22/2024 3:43 PM CDT) Gail Jara MD ECG ORDERABLES Joanne l Result * POCT lipid panel (08/22/2024 9:57 AM CDT) Cholesterol, POC 144 mg/dL Comment:GLU = 105 HDL, POC 67 mg/dL Triglycerides, POC 104 mg/dL LDL Cholesterol POC 57 mg/dL Chol/HDL Ratio, POC 0.8 Non-HDL Cholesterol, POC 77 mg/dL Cholesterol Total, POC 144 mg/dL Capillary blood 08/22/2024 9 :57 AM CDT Gail Jara MD POINT OF CARE TEST O RDERABLES Final Result * RAD ONC ARIA COURSE SUMMARY (08/10/2024 6:25 PM CDT) Pathologist [facility] Course Name C1_Prostate_ 2024 ARIA Course Plan [...] ARIA * RAD ONC ARIA SESSION SUMMARY (08/10/2024 [...] ORD ERABLES Final Result Performing Organization Address [facility] Co de Phone Number ARIA * RAD ONC ARIA SESSION SUMMARY (08/08/2024 11:57 AM CDT) Course Name C1_Prostate2024 ARIA Course Plan Date 07/21/2024 3:22 PM [...] ORD ERABLES Final Result Performing Organization Address City/[facility] Co de Phone Number ARIStevan * RAD ONC ARIA SESSION SUMMARY (08/03/2024 [...] ORD ERABLES Final Result Performing Organization Address [facility] de Phone Number SARAH * RAD ONC [...] ONCOLOGY ORD ERABLES Final Result SARAH * Hepatitis C antibody Blood (02/16/2024 [...] 7:58 AM CDT 02/17/2024 11:30 AM CDT us Shaye Siu MD LAB MICROBIOLOGY - GEN ERAL ORDERABLES Final Result [facility] [address] [place] [address] * Colonoscopy (12/17/2023 10:02 AM CDT) Anatomical Region Laterality Modality Other Narrative Procedure Note Antionette Villanueva MD - 12/17/2023 10:02 AM CDT GI ENDOSCOPY [facility] Patient Name: Nicola Sauceda Procedure Date: 12/17/2023 10:02 AM Date of : 1950 Admit Type: Outpatient Age: 73 Gender: Male Attending MD: Antionette Villanueva M.D. Room: [facility] ENDOSCOPY ROOM 4 Note Status: Finalized Procedure: Colonoscopy Indications: High risk colon cancer surveillance: Personalhistory of colonic polyps Referring MD: Shaye Siu M.D. Providers: Antionette Villanueva M.D. Medicines: [...] The scope was passed under direct vision.The [id number] endoscope was introduced through the anus [...] 0 Note Initiated On: 12/17/2023 10:02 AM Antionette Villanueva MD ENDOSCOPY PROCEDURES F inal Result from Last 3 Months or Most Recently Relevant to Health Maintenance Insurance [id number] [place] [address] [facility] Advance Directives For more information, please contact: [phone] * Full Code (Latest Code Status on File) Date Activated Date Inactivated Comments 12/17/2023 9:32 AM 12/17/2023 3:21 PM Care Teams Rn Embedded Relationship Specialty Start Date End Date Trish Ma MD [address] [facility] [address] [place] [address] PCP - General Family Practice 06/30/24 Deborah Restrepo MD Consulting Physician Urology 04/08/23
[2024-10-12 13:03] LABS: Basophils Absolute Auto 0.1 K/mm3 (0.0-0.1); Basophils Percent Auto 1.1 % (0.2-1.2); Eosinophils Absolute Auto 0.3 K/mm3 (0-0.3); Eosinophils Percent Auto 3.4 % (0-4.4); Hemoglobin 13.6 g/dL (14.0-18.0); Immature Granulocyte Absolute 0.02 K/mm3 (0.00-0.031); Immature Granulocyte Percent A 0.3 % (0-0.5); Lymphocytes Percent Auto 22.4 % (18.3-44.2); Mean Corpuscular HGB Conc 31.6 g/dl (32-36); Mean Corpuscular Hemoglobin 29.4 pg (26-34); Mean Corpuscular Volume 93.1 fl (80-100); Mean Platelet Volume 10.9 fl (7.4-10.4); Monocytes Percent Auto 12.7 % (2.6-8.5); Neutrophils Absolute Auto 4.6 K/mm3 (1.3-6.7); Neutrophils Percent Auto 60.1 % (45.5-73.1); Platelet Count Result 205 k/mm3 (150-375); Red Blood Count 4.62 M/mm3 (4.6-6.20); Red Cell Distribution Width 13.6 % (11.5-14.5); White Blood Count 7.6 K/mm3 (4.5-10.0)
[2024-10-12 13:08] LABS: Alanine Aminotransferase 35 U/L (6-50); Albumin Level 4.7 g/dL (3.5-5.1); Alkaline Phosphatase 55 U/L (38-126); Anion Gap 10 mmol/L (4-12); Aspartate Amino Transferase 49 U/L (17-59); Bilirubin,Total 0.7 mg/dL (0.2-1.3); Blood Urea Nitrogen 17 mg/dL (9-20); Calcium 9.3 mg/dL (8.4-10.2); Carbon Dioxide 27 mmol/L (22-30); Chloride 104 mmol/L (98-107); Cholesterol 136 mg/dL (0-200); Estimated Glomerular Filt Rate > 60; Glucose 97 mg/dL (65-110); HDL Direct 60 mg/dL; Potassium 4.2 mmol/L (3.4-5.0); Sodium 141 mmol/L (137-145); Triglycerides 126 mg/dL (<150)
[2024-10-12 13:19] LABS: LDL Cholesterol Direct 37 mg/dL
[2024-10-12 13:43] LABS: Vitamin D 25 Hydroxy 18.4 ng/mL
[2024-10-12 17:17] LABS: Hemoglobin A1C 5.4 % (<5.7)
== END 2024-10-12 09:42 | disposition home or self-care (01) ==
PROVIDERS: PCP Family Medicine; Visit Provider Family Medicine
DX: E55.9 Vitamin D deficiency, unspecified (principal); E78.5 Hyperlipidemia, unspecified; I10 Essential (primary) hypertension; R73.9 Hyperglycemia, unspecified; E53.8 Deficiency of other specified B group vitamins
CPT/HCPCS: 36415; 80053; 80061; 82306; 82607; 83036; 84443; 85025

== ENCOUNTER 2025-04-13 13:53 | Outpatient (CLI) | payer OTHER, SELFPAY ==
--- OUTSIDE RECORDS SUMMARY | 2025-04-13 17:14 | XMS_ITS | Clinical Summary ---
Author Organization [facility] Address [address] [facility] [address] [place] [phone] Phone Care Team Providers Care Sports Instructor Name Role Phone Deborah Restrepo MD Unavailable Trish Ma MD Primary Care Provider Misti Persaud NP Unavailable Isaac Johnson MD Unavailable [phone] Allergies Active Allergy Reactions Criticality Noted Date Comments Ciprofloxacin Hives,Itching,Other (See comments) Medium 04/02/2022 BP drops Medications tiZANidine (ZANAFLEX) 2 mg tabletIndications:Acute bilateral low back pain without sciatica Take 1 tablet (2 mg total) by mouth every 8 (eight) hours as needed for muscle spasms 270 tablet 1 10/21/19 24 Active amLODIPine-benazepriL (LOTREL) 5-40 mg per capsuleIndications: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,Essential hypertension TAKE 1 CAPSULE BY MOUTH EVERY DAY AT NIGHT 90 capsule 1 03/21/20 24 Active aspirin 81 mg chewable tabletIndications: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 TAKE 1 TABLET BY MOUTH EVERY DAY 90 tablet 3 03/21/20 24 Active rosuvastatin (CRESTOR) 40 mg tabletIndications: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 45 tablet 06/06/19 25 Active ergocalciferol (VITAMIN D) 50,000 unit capsule TAKE 1 CAPSULE BY MOUTH WEEKLY 10/14/19 25 Active tamsulosin (FLOMAX) 0.4 mg extended release capsule TAKE 1 CAPSULE BY MOUTH EVERY DAY 90 capsule 3 03/09/20 25 Active Active Problems Problem Noted Date Diagnosed Date Encounter for follow-up surveillance of prostate cancer 11/03/2024 Hx of CABG 08/22/2024 Screen for colon cancer 10/07/2023 Essential hypertension 04/08/2023 Assessment & Plan (10/07/2023 7:19 PM CDT): Chronic. Controlled. Continue beta-denis, amlodipine benazepril, aspirin Assessment & Plan (04/08/2023 4:55 PM SUPERVISOR BORDER DEPARTMENT): Chronic. HTN controlled. Cont prescription Rx. Low sodium diet (DASH or Mediterranean), exercise, wt loss (if over weight) discussed Pure hypercholesterolemia 04/08/2023 Assessment & Plan (10/07/2023 7:19 PM CDT): Chronic. Tolerates rosuvastatin. LDL goal of less than 70. Borderline control on last check. Continue cholesterol medication. Work on diet and lifestyle Assessment & Plan (04/08/2023 4:56 PM SUPERVISOR BORDER DEPARTMENT): Chronic. Tolerates rosuvastatin 40 mg daily. LDL [...] control Assessment & Plan (04/08/2023 4:56 PM SUPERVISOR BORDER DEPARTMENT): Chronic. Denies chest pain. Continue risk factor [...] tamsulosin Assessment & Plan (04/08/2023 4:56 PM SUPERVISOR BORDER DEPARTMENT): Recent diagnosis earlier this year. Sees urology. Currently they are planning Q six-month PSA monitoring before considering if positive initial treatment would be necessary Elevated PSA 04/02/2022 Encounters Date Type Department Care Team Description 02/15/2025 8:20 AM CDT Office Visit [facility] Radiation Oncology [address] [place] [address] [place] [address] Misti Persaud NP Prostate cancer (HCC) (Primary Dx); Encounter for follow-up surveillance of prostate cancer 01/27/2025 9:10 AM CDT Lab [place] [id number] [place] [address] Prostate cancer (HCC) from Last 3 Months Immunizations Immunization Administration Dates Next Due COVID-19 mRNA (PFIZER) 0.3 m L (30 mcg) vaccine (12 [...] Past Smokeless Tobacco: Never Tobacco Cessation:Counseling Given: No Comments:Rare social cigar AUDIT-C Answer Date Recorded [...] 36.3 C (97.3 F) 07/06/2024 12:27 PM SUPERVISOR BORDER DEPARTMENT Respiratory Rate 16 07/18/2024 4:00 PM SUPERVISOR BORDER DEPARTMENT Oxygen Saturation 94% 08/22/2024 9:15 AM CDT Inhaled Oxygen Concentration - - Weight 92.2 kg (203 lb 3.2 oz) 02/15/2025 8:09 A M CDT Height 172.7 cm (5' 7.99) 02/15/2025 8:09 AM CD T Body Mass Index 30.9 02/15/2025 8:09 AM CDT Plan of Treatment Health Maintenance Due Date Last Done Comments Zoster Vaccine (1 of 2) 1969 Depression Screening 04/08/2024 04/08/2023, 04/02/20 22 Well Visit 65+ 04/08/2024 04/08/2023, 12/23/2021 Covid-19 Vaccine ( season) 2025 08/12/2023, 08/12/2023, 02/07/2023, Additional history exists Influenza Vaccine (#1) 2025 , 01/10/2023, 01/06/2022 Fall Risk Assessment 07/06/2025 07/06/2024, 12/17/2023, 04/08/2023, Additional history exists DTaP/Tdap/Td Vaccine (2 - Td or Tdap) 10/01/2032 10/01/2022 Pneumococcal vaccine 65+ Completed 06/03/2023 Colon Cancer Screening-Colonoscopy Discontinued 12/17/2023, 06/25/2018 Hepatitis C Screening Completed 02/16/2024 Prostate Cancer Screening-PSA Discontinued , 09/27/2024, 02/16/2024, Additional history exists Hepatitis B Screening Discontinued Medical Devices Implanted Type Area Project Management It Specialist Device Identifier Shelf Expiration Date Model / Serial / Lot Stent Implanted:Qty: 1 Stent Heart Sternal Wires Sternum Procedures Procedure Name Priority Date/Time Associated Diagnosis Comments PSA DIAGNOSTIC Routine 01/27/2025 9:14 AM CDT Prostate cancer (HCC) HEPATITIS C ANTIBODY Routine 02/16/2024 7:58 AM CDT Encounter for hepatitis C screening test for low risk patient Laboratory examination ordered as part of a complete physical examination COLONOSCOPY 12/17/2023 10:02 AM CDT from Last 3 Months or Most Recently Relevant to Health Maintenance Results * PSA diagnostic (01/27/2025 9:14 AM CDT) PSA-Total 3.56 <=6.20 ng/mL Comment: Interpretive Data AGE SEX [...] Current interpretive data last revised 21. Blood 01/27/2025 9:14 AM CDT 01/27/2025 10:41 AM CDT [facility] Nadege Persaud ENGLISH LANGUAGE ARTS TEACHER LAB BLOOD ORDERABLES F inal Result CHRISTINE [address] [facility] Department [place] [address] * Hepatitis C antibody Blood (02/16/2024 7:58 [...] - GEN ERAL ORDERABLES Final Result CHRISTINE [address] [facility] Department [place] [address] * Colonoscopy (12/17/2023 10:02 AM CDT) Anatomical Region Laterality Modality Other Narrative Procedure Note Antionette Villanueva MD - 12/17/2023 10:02 AM CDT [facility] Patient Name: Nicola Davis Procedure Date: 12/17/2023 10:02 AM Date of : 1950 Admit Type: Outpatient Age: 73 Gender: Male Attending MD: Antionette Villanueva M.D. Room: [facility] ENDOSCOPY ROOM 4 Note Status: Finalized Procedure: [...] The scope was passed under direct vision.The [id number] endoscope was introduced through the anus [...] Most Recently Relevant to Health Maintenance Insurance [facility] Member Subscriber Plan / Payer ( fective 2022-Present) Name:Nicola Davis Relation to Subscriber:Self Name:Nicola Davis Payer ID:[id number] (NA) Type:MEDICARE RISK OTHER Address: [place] [id number] [facility] Advance Directives For more information, please contact: [phone] * Full Code (Latest Code Status on File) Date Activated Date Inactivated Comments 12/17/2023 9:32 AM 12/17/2023 3:21 PM Care Teams Sports Instructor Relationship Specialty Start Date End Date Trish Ma MD [address] [facility] [address] [place] [address] PCP - General Family Practice 06/30/24 Deborah Restrepo MD Consulting Physician Urology 04/08/23 Misti Persaud NP [address] [facility] [address] [place] [address] Nurse Practitioner Radiation Oncology 11/09/24 Isaac Johnson MD [address] [facility], [place] [address] Radiation Oncologist Radiation Oncology 11/09/24
--- OUTSIDE RECORDS SUMMARY | 2025-04-13 17:14 | XMS_ITS ---
Author Organization [facility] Address [address] [facility] [address] [place] [phone] Phone Care Team Providers Care Operating Manager Name Role Phone Deborah Restrepo MD Unavailable Trish Ma MD Primary Care Provider Misti Persaud NP Unavailable [phone] Isaac Johnson MD Unavailable [phone] Active Problems Problem Noted Date Diagnosed Date Encounter for follow-up surveillance of prostate cancer 11/03/2024 Hx of CABG 08/22/2024 Screen for colon cancer 10/07/2023 Essential hypertension 04/08/2023 Assessment & Plan (10/07/2023 7:19 PM CDT): Chronic. Controlled. Continue beta-denis, amlodipine benazepril, aspirin Assessment & Plan (04/08/2023 4:55 PM ASSISTANT AUDITOR): Chronic. HTN controlled. Cont prescription Rx. Low sodium diet (DASH or Mediterranean), exercise, wt loss (if over weight) discussed Pure hypercholesterolemia 04/08/2023 Assessment & Plan (10/07/2023 7:19 PM CDT): Chronic. Tolerates rosuvastatin. LDL goal of less than 70. Borderline control on last check. Continue cholesterol medication. Work on diet and lifestyle Assessment & Plan (04/08/2023 4:56 PM ASSISTANT AUDITOR): Chronic. Tolerates rosuvastatin 40 mg daily. LDL [...] control Assessment & Plan (04/08/2023 4:56 PM ASSISTANT AUDITOR): Chronic. Denies chest pain. Continue risk factor [...] tamsulosin Assessment & Plan (04/08/2023 4:56 PM ASSISTANT AUDITOR): Recent diagnosis earlier this year. Sees urology. [...] Points Delivered PROST [id number] 08/01/2024 - 08/10/2024 [id number],[phone]
[2025-04-13 18:05] LABS: Iron 80 ug/dL (49-181)
[2025-04-13 18:06] LABS: Alanine Aminotransferase 23 U/L (6-50); Albumin Level 4.3 g/dL (3.5-5.1); Alkaline Phosphatase 64 U/L (38-126); Anion Gap 8 mmol/L (4-12); Aspartate Amino Transferase 45 U/L (17-59); Bilirubin,Total 0.5 mg/dL (0.2-1.3); Blood Urea Nitrogen 19 mg/dL (9-20); Calcium 9.3 mg/dL (8.4-10.2); Carbon Dioxide 25 mmol/L (22-30); Chloride 106 mmol/L (98-107); Estimated Glomerular Filt Rate > 60; Glucose 109 mg/dL (65-110); Potassium 4.1 mmol/L (3.4-5.0); Sodium 139 mmol/L (137-145); Total Protein 7.2 g/dL (6.3-8.2)
[2025-04-13 18:08] LABS: Hematocrit 39.0 % (42.0-52.0); Hemoglobin 12.8 g/dL (14.0-18.0); Immature Granulocyte Percent A 0.4 % (0-0.5); Lymphocytes Absolute Auto 1.83 K/mm3 (0.9-3.2); Mean Corpuscular HGB Conc 32.8 g/dl (32-36); Mean Corpuscular Hemoglobin 29.8 pg (26-34); Mean Corpuscular Volume 90.7 fl (80-100); Nucleated Red Blood Cells Absolute Auto 0.000 K/mm3 (0.0-0.012); Nucleated Red Blood Cells Perc 0.0 % (0.0-0.2); Platelet Count Result 229 k/mm3 (150-375); Red Blood Count 4.30 M/mm3 (4.6-6.20); White Blood Count 7.8 K/mm3 (4.5-10.0)
[2025-04-13 18:15] LABS: Percent Iron Saturation 28 % (20-50)
[2025-04-13 18:50] LABS: Ferritin 170.00 ng/mL (11.1-264)
== END 2025-04-13 13:54 | disposition home or self-care (01) ==
LOC: ANHGOSHLAB 13:54
PROVIDERS: PCP Family Medicine; Visit Provider Family Medicine
DX: D64.9 Anemia, unspecified (principal); I10 Essential (primary) hypertension; E55.9 Vitamin D deficiency, unspecified; G89.29 Other chronic pain; M54.50 Low back pain, unspecified
CPT/HCPCS: 36415; 80053; 82306; 82728; 83540; 83550; 85025